=== PATIENT | female | born 1945 | race Caucasian/White ===

== ENCOUNTER 2017-11-25 17:49 | Observation (INO) | payer OTHER ==
[~2017-11-25] VITALS: Ht 160 cm; Wt 124.1 kg
[~2017-11-25 17:49] MED LIST: CALTRATE PLUS1 EACH PO; FLEXERIL5 MG PO; [UNRECOGNIZED DRUG - REMARK]; [UNRECOGNIZED DRUG - REMARK]
[2017-11-25 19:03] LABS: HEMOGLOBIN 12.5 G/DL (11.9-15.5); MCH 28.5 PG (29.0-34.0); MCHC 33.8 G/DL (30.0-36.0); MCV 84.3 FL (83-99); PLATELET COUNT 176 K/uL (156-360); RBC DIS.WIDTH-CV 14.7 % (11.8-14.6); RED BLOOD COUNT 4.39 M/uL (3.80-5.20)
[2017-11-25 19:14] LABS: CHLORIDE 104 mEq/L (99-109); POTASSIUM 4.5 mEq/L (3.7-5.4); SODIUM 139 mEq/L (136-147)
[2017-11-25 19:15] LABS: GLUCOSE 180 mg/dL (70-99)
[2017-11-25 19:19] LABS: GFR ESTIMATE (CALCULATED) 58 mL/min/
[2017-11-25 19:20] LABS: UREA NITROGEN (BUN) 14 mg/dL (9-23)
[2017-11-25 19:25] LABS: TROP-I INTERPRETATION NEGATIVE; TROPONIN-I 0.02 ng/mL (0.0-0.30)
[2017-11-25] MEDS ORDERED: INDERAL10 MG PO (20:47)
[2017-11-25] MEDS ORDERED: SYNTHROID25 MCG PO (20:48)
[2017-11-25] MEDS ORDERED: NORVASC10 MG PO (20:49)
[2017-11-25] MEDS ORDERED: GLUCOPHAGE500 MG PO (20:49)
[2017-11-25] MEDS ORDERED: SYNTHROID75 MCG PO (20:49)
[2017-11-25] MEDS ORDERED: HAIR, SKIN & N1 EAC1 PO (20:50)
[2017-11-25] MEDS ORDERED: MEVACOR20 MG PO (20:50)
[2017-11-25] MEDS ORDERED: ADVIL200 MG PO (20:50)
[2017-11-25] MEDS ORDERED: HYDROCHLOROTHIA25 MG PO (20:50)
[2017-11-25 22:05] LABS: HDL CHOLESTEROL 39 MG/DL (Desirable>=50); LDL CHOLESTEROL 96 mg/dL (Desirable<100); NON-HDL CHOLESTEROL 121 mg/dL (Desirable<160); TOTAL CHOLESTEROL 160 mg/dL (Desirable<200); TRIGLYCERIDES 126 MG/DL (Normal: <150)
[2017-11-25 22:06] VITALS: BP 177/75
[2017-11-26 01:18] LABS: TROP-I INTERPRETATION NEGATIVE; TROPONIN-I 0.05 ng/mL (0.0-0.30)
[2017-11-26 03:49] VITALS: BP 148/68
[2017-11-26 06:21] LABS: TROP-I INTERPRETATION NEGATIVE; TROPONIN-I 0.04 ng/mL (0.0-0.30)
[2017-11-26 07:24] VITALS: BP 142/65
[2017-11-26 10:15] LABS: APPEARANCE CLEAR ((CLEAR)); BILIRUBIN NEGATIVE; BLOOD NEGATIVE; COLOR YELLOW ((YELLOW)); GLUCOSE (STRIP) NEGATIVE; KETONES NEGATIVE; LEUKOCYTES NEGATIVE; NITRITE NEGATIVE; PROTEIN (STRIP) NEGATIVE; SPECIFIC GRAVITY 1.009 (1.000-1.030); UCUL ADDED? NO; UROBILINOGEN 0.2 MG/DL (0.2-1.0)
[2017-11-26 11:06] VITALS: BP 142/67
[2017-11-26] MEDS ORDERED: ASPIR 8181 M1 PO (15:46)
== END 2017-11-26 16:23 | disposition home or self-care (01) ==
LOC: EXP 17:49 → EME 17:49 → 4SOUTH 20:41 → EDOF 20:41 → 4SOUTH 21:45
PROVIDERS: Hospitalist; Internal Medicine Cardiovascular Disease
DX: R07.89 Other chest pain (principal); I44.7 Left bundle-branch block, unspecified; E11.9 Type 2 diabetes mellitus without complications; E78.5 Hyperlipidemia, unspecified; I11.9 Hypertensive heart disease without heart failure; I48.91 Unspecified atrial fibrillation; E07.9 Disorder of thyroid, unspecified; D64.9 Anemia, unspecified; M81.0 Age-related osteoporosis without current pathological fracture; G25.0 Essential tremor; E66.01 Morbid (severe) obesity due to excess calories; Z68.42 Body mass index [BMI] 45.0-49.9, adult; Z82.49 Family history of ischemic heart disease and other diseases of the circulatory system; Z79.84 Long term (current) use of oral hypoglycemic drugs; Z96.651 Presence of right artificial knee joint; Z82.3 Family history of stroke
CPT/HCPCS: 71046; 80048; 80061; 81003; 82948; 83036; 84484; 85027; 85379; 93005; 99281; 99285; G0378; J1650